=== PATIENT | male | born 1965 | race Caucasian/White ===

== ENCOUNTER 2020-07-10 01:18 | Outpatient (CLI) | payer OTHER, SELFPAY ==
[2020-07-10 18:01] LABS: SARS-CoV-2 RNA PCR Negative
== END 2020-07-10 01:19 | disposition home or self-care (01) ==
LOC: ANHCOVIDDT 01:18
PROVIDERS: PCP Physician Assistant; Visit Provider Internal Medicine Critical Care Medicine
DX: R09.89 Other specified symptoms and signs involving the circulatory and respiratory systems (principal); Z20.828 Contact with and (suspected) exposure to other viral communicable diseases
CPT/HCPCS: 87635; C9803; U0003

== ENCOUNTER 2020-07-10 08:47 | Outpatient (CLI) | payer OTHER, SELFPAY ==
[2020-07-10 09:06] LABS: Hematocrit 43.8 % (42.0-52.0); Hemoglobin 15.5 g/dL (14.0-18.0); Mean Corpuscular HGB Conc 35.4 g/dl (32-36); Mean Corpuscular Hemoglobin 32.4 pg (26-34); Mean Corpuscular Volume 91.4 fl (80-100); Mean Platelet Volume 9.8 fl (7.4-10.4); Platelet Count Result 202 k/mm3 (150-375); Red Blood Count 4.79 M/mm3 (4.6-6.20); Red Cell Distribution Width 12.1 % (11.5-14.5); White Blood Count 6.4 K/mm3 (4.5-10.0)
[2020-07-10 09:17] LABS: Alanine Aminotransferase 43 U/L (4-50); Albumin Level 4.4 g/dL (3.5-5.1); Alkaline Phosphatase 89 U/L (38-126); Anion Gap 7 mmol/L (8-16); Aspartate Amino Transferase 36 U/L (17-59); Bilirubin,Total 0.8 mg/dL (0.2-1.3); Blood Urea Nitrogen 19 mg/dL (9-20); Calcium 9.5 mg/dL (8.4-10.2); Carbon Dioxide 29 mmol/L (22-30); Chloride 103 mmol/L (98-107); Cholesterol 195 mg/dL (0-200); Estimated Glomerular Filt Rate > 60; Glucose 120 mg/dL (75-110); HDL Direct 35 mg/dL; Potassium 4.2 mmol/L (3.4-5.0); Sodium 139 mmol/L (137-145); Triglycerides 378 mg/dL (<150)
[2020-07-10 09:28] LABS: LDL Cholesterol Direct 106 mg/dL
[2020-07-10 09:49] LABS: Prostate Specific Antigen 0.3 ng/mL (< OR = 4.0)
== END 2020-07-10 08:48 | disposition home or self-care (01) ==
PROVIDERS: PCP Internal Medicine; Visit Provider Physician Assistant
DX: Z12.5 Encounter for screening for malignant neoplasm of prostate (principal); Z00.00 Encounter for general adult medical examination without abnormal findings
CPT/HCPCS: 36415; 80053; 80061; 84153; 84443; 85027; G0103

== ENCOUNTER 2020-07-12 07:38 | Outpatient (CLI) | payer OTHER, SELFPAY ==
--- NOTE | 2020-08-07 12:41 | WPDSLEEPSTUD ---
Sleep Study Date of Study: 07/12/20 Ordering Provider: Chaka Hall PA-C Interpreting Physician: Loreto Rangel MD Sleep Study Type: Polysomnogram Height: 1.88 m Weight: 165.108 kg Body Mass Index: 46.7 Dorado: 7 Reason for Sleep Study hypersomnia Sleep History Car Freitas is a 55 year-old man who is tired on waking and is sleepy throughout the day he constantly snores and is constantly loud enough that others complain about it. He occasionally awakens at night with heartburn and belching or coughing. He does not have trouble sleep with a cold. Rarely wakes up gasping for breath at night. He frequently has breathing problems at night observed by others. He occasionally sweats excessively at night, occasionally notices his heart pounding or beating her regularly at night, occasionally falls asleep during the day occasionally involuntarily never while driving. He does not lose muscle tone was trauma motion. He occasionally has daytime difficulties due to excessive sleepiness. He does not have sleep paralysis. Rarely has vivid dreamlike scenes upon awakening or falling asleep. He has never free to go to sleep. Rarely has nightmares. He occasional remembers his dreams. He frequently has racing thoughts. He really feels sad or depressed. He occasionally has anxiety muscular tension, notices parts of his body jerking, occasionally kicks at night occasionally has Hurt aching feelings in his legs and occasionally has leg pain at night. He never has morning jaw pain. He occasionally grind his teeth at night. He really is bothered by pain during the day or awakened with pain at night. He occasionally wakes up feeling stiff in the morning with sore achy muscles. He was started on sildenafil for erectile dysfunction. Dorado = 7. Habits: Never smoked. Caffeine one cup a day. Three alcoholic beverages a day. No recreational drugs.. [facility] Past Medical History Medical History (Updated 08/07/20 @ 13:07 by Loreto Rangel MD) Diverticulitis Family History Family History Father Acute myocardial infarction Patient's father is in good health Mother Patient's mother is in good health Social History Social History Smoking status: Never smoker Second hand tobacco smoke exposure: No Alcohol intake: current Drinks per week: 6 Substance use: never Medications Home Medications Medication Instructions Recorded Confirmed Type sildenafil 100 mg tablet 100 mg PO DAILY PRN #8 tablet 05/23/20 05/23/20 Rx Sleep Procedure This test was performed using the same and multiple channel system including EOG, EEG, submental EMG, EKG, nasal and oral airflow using thermistors and nasal pressure sensors, chest and abdominal belts for body position data, and pulse oximetry. Video monitoring was also performed. The study was scored using [facility] guidelines. Duration of the recording time was 434.5 minutes. Sleep time was 364 minutes. Sleep efficiency was 83.6%. Sleep latency was 24.9 minutes, REM latency was 83 minutes both normal. There were 24 awakenings. He spent 26 minutes awake after sleep onset. Sleep Architecture Stage 1 sleep = 6.3%, stage II sleep 55.7%, no stage II sleep, and 26.7% stage REM. He spent 27% of the study in the supine position. he had somewhat fragmented sleep with shifts between wake stage I and stage II. Supine REM did occur in the study. Respiratory Analysis The [facility] apnea-hypopnea index is 12.9. during supine REM there were 2 obstructive apneas and 24 obstructive hypopneas for an index of 34.7. During nonsupine REM to there were 23 obstructive hypopneas for an index of 22.3. During supine non-REM there was 1 central apnea and 18 obstructive hypopneas for an index of 16.2. And nonsupine non-REM there was 1 central apnea and 8 obstructive hypopneas for an index of 2.9. Supine index
[2020-08-07 13:18] VITALS: BMI 46.7
== END 2020-07-12 07:39 | disposition home or self-care (01) ==
LOC: ANHCSM 07:39
PROVIDERS: PCP Internal Medicine; Visit Provider Physician Assistant
DX: G47.33 Obstructive sleep apnea (adult) (pediatric) (principal); G47.10 Hypersomnia, unspecified
CPT/HCPCS: 95810

== ENCOUNTER 2020-08-25 07:07 | Outpatient (CLI) | payer OTHER, SELFPAY ==
[2020-08-25 07:45] LABS: Alanine Aminotransferase 42 U/L (4-50); Albumin Level 4.4 g/dL (3.5-5.1); Alkaline Phosphatase 86 U/L (38-126); Anion Gap 9 mmol/L (8-16); Aspartate Amino Transferase 32 U/L (17-59); Blood Urea Nitrogen 17 mg/dL (9-20); Calcium 9.5 mg/dL (8.4-10.2); Carbon Dioxide 28 mmol/L (22-30); Chloride 102 mmol/L (98-107); Cholesterol 194 mg/dL (0-200); Estimated Glomerular Filt Rate > 60; Glucose 103 mg/dL (75-110); HDL Direct 37 mg/dL; Potassium 4.1 mmol/L (3.4-5.0); Sodium 139 mmol/L (137-145); Triglycerides 212 mg/dL (<150)
[2020-08-25 07:56] LABS: LDL Cholesterol Direct 121 mg/dL
== END 2020-08-25 07:08 | disposition home or self-care (01) ==
PROVIDERS: PCP Internal Medicine; Visit Provider Physician Assistant
DX: E78.5 Hyperlipidemia, unspecified (principal)
CPT/HCPCS: 36415; 80053; 80061

== ENCOUNTER → 2021-09-05 02:02 | Outpatient (CLI) | payer OTHER, SELFPAY ==
[2021-09-05 18:14] LABS: SARS-CoV-2 RNA PCR Positive
== END ==
PROVIDERS: PCP Internal Medicine; Visit Provider Internal Medicine
DX: U07.1 COVID-19 (principal)
CPT/HCPCS: C9803; U0003; U0005

== ENCOUNTER 2022-01-15 08:12 | Outpatient (CLI) | payer OTHER, SELFPAY ==
[2022-01-15 08:37] LABS: Basophils Percent Auto 0.7 % (0.2-1.2); Eosinophils Absolute Auto 0.1 K/mm3 (0-0.3); Eosinophils Percent Auto 1.5 % (0-4.4); Hematocrit 44.6 % (42.0-52.0); Immature Granulocyte Absolute 0.02 K/mm3 (0.00-0.031); Immature Granulocyte Percent A 0.3 % (0-0.5); Lymphocytes Percent Auto 33.7 % (18.3-44.2); Mean Corpuscular HGB Conc 35.9 g/dl (32-36); Mean Corpuscular Hemoglobin 32.5 pg (26-34); Mean Corpuscular Volume 90.5 fl (80-100); Mean Platelet Volume 9.8 fl (7.4-10.4); Monocytes Absolute Auto 0.5 K/mm3 (0.1-0.6); Monocytes Percent Auto 8.1 % (2.6-8.5); Neutrophils Absolute Auto 3.3 K/mm3 (1.3-6.7); Neutrophils Percent Auto 55.7 % (45.5-73.1); Platelet Count Result 190 k/mm3 (150-375); Red Blood Count 4.93 M/mm3 (4.6-6.20); Red Cell Distribution Width 12.2 % (11.5-14.5); White Blood Count 5.9 K/mm3 (4.5-10.0)
[2022-01-15 08:41] LABS: Alanine Aminotransferase 38 U/L (4-50); Albumin Level 4.7 g/dL (3.5-5.1); Alkaline Phosphatase 78 U/L (38-126); Anion Gap 8 mmol/L (8-16); Aspartate Amino Transferase 35 U/L (17-59); Bilirubin,Total 1.2 mg/dL (0.2-1.3); Blood Urea Nitrogen 18 mg/dL (9-20); Calcium 9.4 mg/dL (8.4-10.2); Carbon Dioxide 28 mmol/L (22-30); Chloride 104 mmol/L (98-107); Cholesterol 253 mg/dL (0-200); Estimated Glomerular Filt Rate > 60; Glucose 105 mg/dL (65-110); HDL Direct 41 mg/dL; Potassium 4.4 mmol/L (3.4-5.0); Sodium 140 mmol/L (137-145); Triglycerides 215 mg/dL (<150)
[2022-01-15 08:52] LABS: LDL Cholesterol Direct 143 mg/dL
[2022-01-15 09:12] LABS: Prostate Specific Antigen 0.3 ng/mL (< OR = 4.0)
[2022-01-26 19:35] LABS: Testosterone Free 47.5 pg/mL (35.0-155.0); Testosterone Total 349 ng/dL (250-1100)
== END 2022-01-15 08:13 | disposition home or self-care (01) ==
PROVIDERS: PCP Internal Medicine; Visit Provider Internal Medicine
DX: R53.83 Other fatigue (principal); Z00.00 Encounter for general adult medical examination without abnormal findings
CPT/HCPCS: 36415; 80053; 80061; 84153; 84402; 84403; 84443; 85025; G0103

== ENCOUNTER 2022-02-04 12:36 | Outpatient (CLI) | payer OTHER, SELFPAY | END 2022-02-04 12:37 | disposition home or self-care (01) | PROVIDERS: PCP Internal Medicine; Visit Provider Otolaryngology | DX: H93.19 Tinnitus, unspecified ear (principal); H90.3 Sensorineural hearing loss, bilateral | CPT/HCPCS: 92557; 92567 ==

== ENCOUNTER 2024-06-16 11:45 | Outpatient (CLI) | payer OTHER, SELFPAY ==
[2024-06-21 16:33] LABS: Immunoglobulin A 137 mg/dL (47-310); TTG IGA AB <1.0 U/mL
== END 2024-06-16 11:46 | disposition home or self-care (01) ==
LOC: ANHLAB 11:46
PROVIDERS: PCP Internal Medicine; Visit Provider Nurse Practitioner Family
DX: R19.5 Other fecal abnormalities (principal)
CPT/HCPCS: 36415; 82784; 86038; 86039; 86364

== ENCOUNTER 2024-09-24 01:22 | Day surgery (SDC) | payer OTHER, SELFPAY ==
[2024-09-13 13:26] VITALS: BMI 32.2
[2024-09-24 07:52] VITALS: BP 130/82; PULSE 74; RESP 20; TEMP 35.8; O2SAT 99; BMI 32.2
[2024-09-24] MEDS: LACTATED RINGERS 1,000 ML 150 ML IV CONT (08:15)
--- NOTE | 2024-09-24 08:36 | P.PNAN_ITS ---
Anes - Initial Pre Proc Eval Procedure: Operation Date: 09/24/24 09:00 Proposed Procedures p Esophagogastroduodenoscopy & Colonoscopy - Valdo Stallworth MD Date/Time: 09/24/24 08:36 Surgeon: Valdo Stallworth MD Pre Op Diagnosis: hx of colon polyps, GERD, non-celiac gluten sens Patient Data Age: 59 Gender: M Height: 1.88 m Weight: 114 kg Last Vital Signs Temp 35.8 C L 09/24/24 07:52 Pulse 74 09/24/24 07:52 Resp 20 09/24/24 07:52 BP 130/82 09/24/24 07:52 Pulse Ox 99 09/24/24 07:52 O2 Del Method Room Air 09/24/24 07:52 Allergies Allergy/AdvReac Type Severity Reaction Status Date / Time No Known Allergies Allergy Verified 09/24/24 08:04 Home Medications ?Medication ?Instructions ?Recorded ?Confirmed ?Type sildenafil 100 mg tablet (Viagra) 100 mg PO DAILY PRN sexual 09/17/21 09/13/24 R x activity #8 tabs Patient hx anesthesia problems: none Family hx anesthesia problems: none Results Review: All pre-operative results and documents have been reviewed as part of the pre- operative evaluation. [facility] Past Medical History Medical History Family history of colon cancer History of colon polyps Gluten intolerance Chronic GERD Joint pain Diverticulitis Family History Family History Father Acute myocardial infarction Patient's father is in good health Mother Patient's mother is in good health Social History Social History Smoking status: Never smoker Second hand tobacco smoke exposure: No Alcohol intake: current Drinks per week: 3 Alcohol use details: Vodka Substance use: never Substance use type: does not use Living arrangements: with family Spiritual care concerns: No Anes - Eval Final PreProcedure Day of Procedure 09/24/24 08:36 Patient weight: obese Heart: regular rate and rhythm Lungs: clear to auscultation Airway: Mallampati scale class II Neurological: alert and oriented Last oral intake: >/= 8 hours ASA classification: II Emergent: no Anesthetic plan: proceed Anesthesia type and monitoring: general GIVS and standard monitoring Results Review: All pre-operative results and documents have been reviewed as part of the pre- operative evaluation. Informed Consent: The patient's anesthetic plan and its attendant risks and benefits were discussed with the patient/family/POA. Questions were solicited and answers provided to the satisfaction of the patient/family/POA.
--- NOTE | 2024-09-24 08:53 | PM.IMHP ---
H&P: HPI History of Present Illness Date/Time: 09/24/24 08:53 Chief Complaint: GERD-history of colon polyps. Narrative: This patient has been experiencing almost daily heartburn for several years, and has never been on a PPI treatment. He has occasional regurgitation but no nausea vomiting or dysphagia. He never had an EGD. In addition, he had colon polyps on previous colonoscopies, the last 1 was 5 years ago. He is here now for EGD and colonoscopy. Review of Systems Review of Systems: All systems reviewed & are unremarkable except as noted in HPI and below PMFSH Past Medical History Medical History Family history of colon cancer History of colon polyps Gluten intolerance Chronic GERD Joint pain Diverticulitis Family History Family History Father Acute myocardial infarction Patient's father is in good health Mother Patient's mother is in good health Social History Social History Smoking status: Never smoker Second hand tobacco smoke exposure: No Alcohol intake: current Drinks per week: 3 Alcohol use details: Vodka Substance use: never Substance use type: does not use Living arrangements: with family Spiritual care concerns: No Meds Home Medications and Allergies Home Medications ?Medication ?Instructions ?Recorded ?Confirmed ?Type sildenafil 100 mg tablet (Viagra) 100 mg PO DAILY PRN sexual 09/17/21 09/13/24 Rx activity #8 tabs Allergies Allergy/AdvReac Type Severity Reaction Status Date / Time No Known Allergies Allergy Verified 09/24/24 08:04 Vital Signs Vital Signs - 24 hr 09/24/24 07:52 Temperature 96.5 F L Pulse Rate 74 Respiratory Rate 20 Blood Pressure 130/82 Pulse Oximetry 99 Oxygen Delivery Room Air Exam Const: General: cooperative and healthy appearing Resp: Effort & Inspection: normal respiratory effort and able to speak in complete sentences Auscultation: clear to auscultation bilaterally Cardio: Rate: regular rate Rhythm: regular rhythm GI: Inspection: normal to inspection GI Palp: No No hepatosplenomegaly present Auscultation: normal bowel sounds Rectal Exam: deferred Skin: General skin exam: normal color Psych: Appearance: grossly normal Mental Status: mental status grossly normal Assessment and Plan Assessment and plan (1) Chronic GERD: Code(s): K21.9 - Gastro-esophageal reflux disease without esophagitis Status: Acute Assessment and Plan: The patient is deemed a good candidate for the procedures. Consent signed. Will proceed. (2) History of colon polyps: Code(s): Z86.010 - Personal history of colon polyps Status: Acute
[2024-09-24] MEDS: BENZOCAINE (*SP) 60 ML SPRAY CAN (HURRICAINE) 1 SPRAY MUCOUS MEM (09:05)
[2024-09-24 09:38] VITALS: BP 107/71; PULSE 73; RESP 17; O2SAT 97
--- NOTE | 2024-09-24 09:38 | SUR.OPER ---
EGD START 905, END 910 COLONOSCOPY START 920, END 934
[2024-09-24 09:48] VITALS: BP 115/77; PULSE 68; RESP 15; O2SAT 98
[2024-09-24 09:58] VITALS: BP 123/78; PULSE 66; RESP 17; O2SAT 98
== END 2024-09-24 10:16 | disposition home or self-care (01) ==
PROVIDERS: Referring Provider Nurse Practitioner Family; Visit Provider Internal Medicine Gastroenterology
PROC: 0DJ08ZZ Inspection of Upper Intestinal Tract, Via Natural or Artificial Opening Endoscopic (ICD-10-PCS; CPT 43235; principal; 2024-09-24 09:00)
DX: Z12.11 Encounter for screening for malignant neoplasm of colon (principal); D12.5 Benign neoplasm of sigmoid colon; K57.30 Diverticulosis of large intestine without perforation or abscess without bleeding; K21.00 Gastro-esophageal reflux disease with esophagitis, without bleeding; K29.50 Unspecified chronic gastritis without bleeding; K44.9 Diaphragmatic hernia without obstruction or gangrene; K90.41 Non-celiac gluten sensitivity; E66.9 Obesity, unspecified; Z68.32 Body mass index [BMI] 32.0-32.9, adult; Z87.19 Personal history of other diseases of the digestive system; Z80.0 Family history of malignant neoplasm of digestive organs; Z82.49 Family history of ischemic heart disease and other diseases of the circulatory system
CPT/HCPCS: 43239; 45385; 88305; J2003; J2704; J7120